=== PATIENT | male | born 1945 | race Caucasian/White ===

== ENCOUNTER → 2019-05-03 | Outpatient (CLI) | payer OTHER ==
--- NOTE | 2019-05-03 12:30 | 2DMMODE ---
[facility] [address] [place] [address] 2 D/M-MODE ECHOCARDIOGRAM Name: DAPHNIE BOLIVAR Room #: REG [facility]#: [id number] ������������� Admission: 05/03/19 ������������� Attend Phys: Jorden Morales MD Discharge: ��� ������������� ��� Date of : 43 Date of Service: 05/03/19 1230 �� Report #: [id number] �������� ��������������������������������������������[id number] THIS REPORT FOR: //name// APPROVED REPORT Study performed: 05/03/2019 11:15:49 EXAM: Comprehensive 2D, Doppler, and color-flow Echocardiogram Patient Location: Out-Patient Room #: Echo lab 1 Status: routine BSA: 2.23 HR: 73 bpm BP: 136/76 mmHg Rhythm: NSR Other Information Study Quality: Good Indications Pre-Op Dyspnea 2D Dimensions RVDd: 35.99 mm IVSd: 11.08 (7-11mm) LVOT Diam: 28.62 (18-24mm) LVDd: 50.87 mm PWd: 10.30 (7-11mm) Ascending Ao: 32.95 (22-36mm) LVDs: 35.42 (25-40mm) Aortic Root: 39.63 mm IVC: 18.00 mm Volumes Left Atrial Volume (Systole) Single Plane 4CH: 35.44 mL Single Plane 2CH: 70.75 mL LA ESV Index: 28.00 mL/m2 Aortic Valve AoV Peak Gilberto.: 1.22 m/s AO Peak Gr.: 5.97 mmHg LVOT Max P.39 mmHg LVOT Max V: 0.92 m/s NICHELLE Vmax: 4.84 cm2 AI Vmax: 4.96 m/s AI Throckmorton: 1.85 m/s2 AI PHT: 776.17 ms [facility] [address] [place] [address] 2 D/M-MODE ECHOCARDIOGRAM Name: DAPHNIE BOLIVAR Room #: REG [facility]#: [id number] ������������� Admission: 05/03/19 ������������� Attend Phys: Jorden Morales MD Discharge: ��� ������������� ��� Date of : 43 Date of Service: 05/03/19 1230 �� Report #: [id number] �������� ��������������������������������������������[id number] Mitral Valve E/A Ratio: 0.6 MV Decel. Time: 277.19 ms MV E Max Gilberto.: 0.66 m/s MV A Gilberto.: 1.13 m/s MV PHT: 80.38 ms IVRT: 119.95 ms Pulmonary Valve PV Peak Gilberto.: 1.20 m/s PV Peak Gr.: 5.74 mmHg Pulmonary Vein P Vein S: 0.57 m/s P Vein A: 0.40 m/s P Vein D: 0.28 m/s P Vein A Dur.: 120.0 msec P Vein S/D Ratio: 2.04 Tricuspid Valve TR Peak Gilberto.: 2.62 m/s TR Peak Gr.: 27.43 mmHg PA Pressure: 32.00 mmHg Left Ventricle The left ventricle is normal size. There is normal LV segmental wall motion. There is normal left ventricular wall thickness. The left ventricular systolic function is normal. The left ventricular ejection fraction is within the normal range. LVEF is 55-60%. Grade I - abnormal relaxation pattern. Right Ventricle The right ventricle is normal size. The right ventricular systolic function is normal. Atria The left atrium size is normal. The right atrium size is normal. Aortic Valve The aortic valve is normal in structure. Aortic valve is calcified. Mild aortic regurgitation. There is no aortic valvular stenosis. Mitral Valve The mitral valve is normal in structure. There is no mitral valve regurgitation noted. No evidence of mitral valve stenosis. Tricuspid Valve [address] [address] 2 D/M-MODE ECHOCARDIOGRAM Name: DAPHNIE BOLIVAR Room #: REG [facility]#: [id number] ������������� Admission: 05/03/19 ������������� Attend Phys: Jorden Morales MD Discharge: ��� ������������� ��� Date of : 43 Date of Service: 05/03/19 1230 �� Report #: [id number] �������� ��������������������������������������������[id number] The tricuspid valve is normal in structure. There is trace tricuspid regurgitation. Estimated PAP 32 mmHg. There is mild pulmonary hypertension. Pulmonic Valve The pulmonary valve is normal in structure. There is no pulmonic valvular regurgitation. Great Vessels The aortic root is normal in size. IVC is normal in size and collapses >50% with inspiration. Pericardium There is no pericardial effusion. <Conclusion> The left ventricle is normal size. There is normal left ventricular wall thickness. The left ventricular systolic function is normal. Grade I - abnormal relaxation pattern. The right ventricle is normal size. The left atrium size is normal. Aortic valve is calcified. Mild aortic regurgitation. There is no mitral valve regurgitation noted. There is trace tricuspid regurgitation. Estimated PAP 32 mmHg. ��������������������������������������������� <ELECTRONICALLY SIGNED> ���������������������������������������� By: Jorden Morales MD ��������������������������������������������� 05/03/19 1230 1230 1230 Jorden Morales MD /INF
== END ==
LOC: CV 08:37
DX: Z01.810 Encounter for preprocedural cardiovascular examination (principal); I35.1 Nonrheumatic aortic (valve) insufficiency; I27.20 Pulmonary hypertension, unspecified; E78.5 Hyperlipidemia, unspecified; I10 Essential (primary) hypertension; E11.9 Type 2 diabetes mellitus without complications; Z79.891 Long term (current) use of opiate analgesic